=== PATIENT | female | born 1960 ===

== ENCOUNTER → 2018-03-13 21:00 | Outpatient (REF) | payer OTHER, SELFPAY ==
[2018-03-13 23:07] LABS: Hemoglobin A1C% w Est Avg Glu 5.7 % (4.0-6.0)
[2018-03-13 23:24] LABS: Cholesterol 213 mg/dL (140-199); HDL Cholesterol 87 mg/dL (40-60); LDL Cholesterol Calculated 114 mg/dL (<100); Triglycerides 60 mg/dL (35-150)
[2018-03-13 23:37] LABS: Free T3, Triiodothyronine Free 2.61 pg/mL (2.77-5.27); Free T4, Direct Thyroxine 1.45 ng/dL (0.78-2.19)
[2018-03-13 23:51] LABS: Thyroid Stimulating Hormone 1.33 uIU/mL (0.47-4.68)
[2018-03-13 23:57] LABS: Ferritin 35.6 ng/mL (11.1-264)
[2018-03-15 14:57] LABS: Progesterone 2.4 ng/mL
[2018-03-15 18:21] LABS: Sex Hormone Binding Globulin 124 nmol/L (14-73)
[2018-03-16 17:47] LABS: Estrogen 173.3 pg/mL
[2018-03-17 18:17] LABS: Testosterone Free 0.6 pg/mL (0.1-6.4); Testosterone Total 8 ng/dL (2-45)
== END ==
LOC: LAB 21:00
PROVIDERS: Visit Provider Naturopath
DX: E06.3 Autoimmune thyroiditis (principal); Z13.89 Encounter for screening for other disorder; E78.5 Hyperlipidemia, unspecified; N95.1 Menopausal and female climacteric states; R73.03 Prediabetes
CPT/HCPCS: 80061; 82672; 82728; 83036; 84144; 84270; 84402; 84403; 84439; 84443; 84481

== ENCOUNTER → 2018-05-23 15:38 | Outpatient (REF) | payer OTHER, SELFPAY ==
[2018-05-23 16:15] LABS: Add Manual Diff / Slide Review NO; Basophils Absolute Auto 0 /uL (0-100); Basophils Percent Auto 1.5 % (0-2); Eosinophils Absolute Auto 100 /uL (0-450); Eosinophils Percent Auto 3.1 % (2-4); Hematocrit 41.1 % (36-46); Hemoglobin 13.7 g/dL (12.0-16.0); Lymphocytes Absolute Auto 1000 /uL (1100-4500); Lymphocytes Percent Auto 32.2 % (25-40); Mean Corpuscular HGB Conc 33.4 % (30-36); Mean Corpuscular Hemoglobin 31.2 PG (26-34); Mean Corpuscular Volume 93.6 fL (80-100); Monocytes Absolute Auto 400 /uL (0-900); Monocytes Percent Auto 13.2 % (3-14); Neutrophils Absolute Auto 1600 /uL (1500-7000); Platelet Count 329 X10^3/uL (150-400); Red Blood Cell Count 4.39 X10^6/uL (4.0-5.2); White Blood Cell Count 3.2 X10^3/uL (4.5-11.0)
== END ==
LOC: LAB 15:38
PROVIDERS: Visit Provider Naturopath
DX: R05 Cough (principal); R53.83 Other fatigue
CPT/HCPCS: 36415; 85025

== ENCOUNTER → 2018-08-03 22:32 | Outpatient (REF) | payer OTHER, SELFPAY ==
[2018-08-04 01:51] LABS: Free T4, Direct Thyroxine 1.45 ng/dL (0.78-2.19)
[2018-08-04 02:33] LABS: Hemoglobin A1C% w Est Avg Glu 5.5 % (4.0-6.0)
[2018-08-04 08:58] LABS: Free T3, Triiodothyronine Free 3.21 pg/mL (2.77-5.27)
[2018-08-09 10:19] LABS: Progesterone 0.9 ng/mL
[2018-08-09 13:42] LABS: Estrogen 117.5 pg/mL
== END ==
LOC: LAB 22:32
PROVIDERS: Visit Provider Naturopath
DX: R73.03 Prediabetes (principal); R53.83 Other fatigue; E06.3 Autoimmune thyroiditis; N95.1 Menopausal and female climacteric states; Z79.890 Hormone replacement therapy
CPT/HCPCS: 36415; 82672; 83036; 84144; 84402; 84403; 84439; 84443; 84481